=== PATIENT | female | born 1990 | race Caucasian/White ===

== ENCOUNTER 2020-08-04 19:39 | Emergency (ER) | payer OTHER ==
[~2020-08-04] VITALS: Ht 170.2 cm; Wt 113.0 kg
[2020-08-04] MEDS ORDERED: CEPHALEXIN 250MG CAPSULE PO ONE (22:00)
[2020-08-04] MEDS ORDERED: ACETAMINOPHEN 325MG TABLET PO ONE (22:00)
[2020-08-04] MEDS ORDERED: SULFAMETHOXAZOLE/TRIMETHOPRIM 800/160MG TABLET PO ONE (22:00)
[2020-08-05 00:28] VITALS: BP 113/67
== END 2020-08-05 00:34 | disposition home or self-care (01) ==
LOC: ER 19:39
DX: S71.112D Laceration without foreign body, left thigh, subsequent encounter (principal); Z48.02 Encounter for removal of sutures; X58.XXXD Exposure to other specified factors, subsequent encounter
CPT/HCPCS: 99284

== ENCOUNTER 2020-08-08 02:07 | Emergency (ER) | payer OTHER ==
[~2020-08-08] VITALS: Ht 170.2 cm; Wt 118.0 kg
[2020-08-08 02:19] VITALS: BP 149/101
== END 2020-08-08 02:47 | disposition home or self-care (01) ==
LOC: ER 02:07
DX: Z48.00 Encounter for change or removal of nonsurgical wound dressing (principal); L03.116 Cellulitis of left lower limb; J45.909 Unspecified asthma, uncomplicated
CPT/HCPCS: 99281

== ENCOUNTER 2020-08-13 16:25 | Emergency (ER) | payer OTHER ==
[~2020-08-13] VITALS: Ht 170.2 cm; Wt 114.0 kg
[2020-08-13 16:26] VITALS: BP 150/87
== END 2020-08-13 17:10 | disposition home or self-care (01) ==
LOC: ER 16:25
DX: Z48.00 Encounter for change or removal of nonsurgical wound dressing (principal); T81.30XD Disruption of wound, unspecified, subsequent encounter; J45.909 Unspecified asthma, uncomplicated
CPT/HCPCS: 99281